=== PATIENT | male | born 1935 | race Caucasian/White ===

== ENCOUNTER 2018-04-27 17:38 | Emergency (ER) | payer OTHER, MEDICARE ==
[~2018-04-27] VITALS: Ht 172.7 cm; Wt 81.6 kg
[~2018-04-27 17:38] MED LIST: ASPI-1154 PO; CLOP75TA32 PO; FURO40TA5 PO; GABA-529 PO; LOSA1TAB43 PO; LOVA20TA2 PO; METF500T6 PO; TAMS-11 PO
--- NOTE | 2018-04-27 17:40 | NUR ---
Pt wheeled to bed 8
[2018-04-27 17:42] VITALS: BP_SYST 157
--- NOTE | 2018-04-27 17:42 | NUR ---
ER Dr. Santiago at bedside examining patient.
--- NOTE | 2018-04-27 17:45 | NUR ---
Pt presents to ER as pt reports having mechanical fall at home early Monday morning. Pt reports that his vision "blacked out" and could not see anything for 30 min, during which he tripped and fell in the hallway of his home. Pt denies KO; pt presents with bump on top of his head, blue / purple discoloration to L side of face, abrasion to L knee, skin tears to R hopson. Pt denies any pain at this time. Pt said he spoke with his PMD earlier today who instructed for him to come to ER. Pt is accompanied by daughter, AOX4, speaking full sentences, no signs of acute distress.
--- NOTE | 2018-04-27 17:55 | NUR ---
Per pt's request, 22G needle to start IV on RAC. Pt stated that 20G needle is too big and would hurt too much.
--- NOTE | 2018-04-27 17:55 | NUR ---
# 22 gauge angiocath placed to RAC. Use of asceptic technique. Opsite placed over site. Blood return noted. Blood for lab drawn from site. Flushed with 10 cc of normal saline. No evidence of infiltration noted. Patient tolerated well.
--- NOTE | 2018-04-27 18:05 | NUR ---
Patient transported to radiology via gurney, accompanied by rad staff.
[2018-04-27 18:25] LABS: BASOPHILS # (AUTO) 0.1 K/uL (0.0-0.2); BASOPHILS % (AUTO) 0.6 % (0.0-2.0); EOSINOPHILS % (AUTO) 0.1 % (0.0-4.0); HEMATOCRIT 43.3 % (36-54); HEMOGLOBIN 13.9 g/dL (14.0-18.0); LYMPHOCYTES # (AUTO) 1.8 K/uL (1.0-5.5); LYMPHOCYTES % (AUTO) 14.3 % (20.5-51.5); MEAN CORPUSCULAR HEMOGLOBIN 28 pg (27-31); MEAN CORPUSCULAR HGB CONC 32 % (32-36); MEAN CORPUSCULAR VOLUME 88 fL (79.0-98.0); MONOCYTES # (AUTO) 1.2 K/uL (0.0-1.0); MONOCYTES % (AUTO) 9.4 % (1.7-9.3); NEUTROPHILS # (AUTO) 9.6 K/uL (1.8-7.7); NEUTROPHILS % (AUTO) 75.6 % (40.0-70.0); PLATELET COUNT (AUTO) 287 K/uL (130-430); RED BLOOD CELL COUNT(AUTO) 4.93 MIL/uL (4.2-6.2); WHITE BLOOD COUNT (AUTO) 12.7 K/uL (4.8-10.8)
[2018-04-27 18:34] LABS: ANION GAP 11 (5-15); CALCIUM 9.4 mg/dL (8.4-11.0); CHLORIDE 101 mmol/L (98-107); CREATININE 2.53 mg/dL (0.55-1.30); GLUCOSE 158 mg/dL (70-99); POTASSIUM 4.2 mmol/L (3.5-5.1); SODIUM SERUM 137 mmol/L (136-145); UREA NITROGEN, BLOOD 43 mg/dL (8-21)
[2018-04-27 18:39] LABS: ALANINE AMINOTRANSFERASE 26 U/L (12-78); ALBUMIN 4.1 g/dL (3.4-4.8); ASPARTATE AMINOTRANSFERASE 39 U/L (10-37); TOTAL BILIRUBIN 0.7 mg/dL (0.0-1.0)
--- NOTE | 2018-04-27 18:50 | NUR ---
Pt upset stating that he needs to leave miguel angel. Pt raising voice and using loud, inappropriate tone with staff. Dr. Santiago informed.
--- NOTE | 2018-04-27 19:00 | NUR ---
Patient does not wish to proceed with medical care recommended by Dr. Santiago. Patient given information related to possible complications, up to and including , which could occur as a result of leaving hospital at this time. Patient verbalizes understanding of risks involved leaving against medical advice. Patient has signed AMA form.
[2018-04-27] MEDS ORDERED: BACITRACIN 1 GM OINT TP ONE (19:03)
== END 2018-04-27 19:00 | disposition left against medical advice (07) ==
LOC: SED 17:38
DX: S90.112A Contusion of left great toe without damage to nail, initial encounter (principal); S00.83XA Contusion of other part of head, initial encounter; S80.811A Abrasion, right lower leg, initial encounter; E11.9 Type 2 diabetes mellitus without complications; I10 Essential (primary) hypertension; F03.90 Unspecified dementia, unspecified severity, without behavioral disturbance, psychotic disturbance, mood disturbance, and anxiety; Z79.899 Other long term (current) drug therapy; W19.XXXA Unspecified fall, initial encounter; Y93.89 Activity, other specified; Y92.89 Other specified places as the place of occurrence of the external cause; Y99.8 Other external cause status
CPT/HCPCS: 36415; 70450-TC; 71045; 80053; 85025; 93005; 99285

== ENCOUNTER 2018-10-20 11:55 | Inpatient (IN) | payer OTHER, MEDICARE ==
[~2018-10-20] VITALS: Ht 172.7 cm; Wt 96.2 kg
[2018-10-20 11:55] VITALS: BP_SYST 124
[~2018-10-20 11:55] MED LIST changes: +METF-379 PO; -METF500T6 PO
--- NOTE | 2018-10-20 11:55 | NUR ---
BROUGHT IN BY [facility], TRIAGED, REPORT GIVEN TO MICKY
--- NOTE | 2018-10-20 11:55 | NUR ---
PLACED IN BED #2
[2018-10-20] MEDS ORDERED: NACL 0.9% 1,000 ML IV ONE ×2 (12:09→15:15)
[2018-10-20] MEDS ORDERED: MORPHINE 4 MG/ML INJ. SYRINGE IVP ONE ×2 (12:15→14:15)
--- NOTE | 2018-10-20 12:25 | NUR ---
PT REFUSED TO HAVE XRAYS DONE. DR ALARCON AWARE.
--- NOTE | 2018-10-20 12:36 | NUR ---
Patient is awake, alert, and oriented x4. Patient is complaining of pain of left hip pain radiating down to his toes x1 day, 03/28.
--- NOTE | 2018-10-20 12:41 | NUR ---
REFUSED TO HAVE LABS DRAWN, DR ALARCON AWARE
[2018-10-20 13:27] LABS: ANION GAP 12 (5-15); CALCIUM 9.4 mg/dL (8.4-11.0); CHLORIDE 97 mmol/L (98-107); CREATININE 2.13 mg/dL (0.55-1.30); GLUCOSE 324 mg/dL (70-99); POTASSIUM 4.4 mmol/L (3.5-5.1); SODIUM SERUM 132 mmol/L (136-145); UREA NITROGEN, BLOOD 39 mg/dL (8-21)
[2018-10-20 13:30] LABS: BASOPHILS # (AUTO) 0.1 K/uL (0.0-0.2); BASOPHILS % (AUTO) 0.9 % (0.0-2.0); EOSINOPHILS % (AUTO) 0.3 % (0.0-4.0); HEMATOCRIT 50.7 % (36-54); HEMOGLOBIN 16.5 g/dL (14.0-18.0); LYMPHOCYTES % (AUTO) 21.1 % (20.5-51.5); MEAN CORPUSCULAR HEMOGLOBIN 29 pg (27-31); MEAN CORPUSCULAR HGB CONC 33 % (32-36); MEAN CORPUSCULAR VOLUME 89 fL (79.0-98.0); MONOCYTES # (AUTO) 0.6 K/uL (0.0-1.0); MONOCYTES % (AUTO) 6.3 % (1.7-9.3); NEUTROPHILS # (AUTO) 6.7 K/uL (1.8-7.7); NEUTROPHILS % (AUTO) 71.4 % (40.0-70.0); PLATELET COUNT (AUTO) 248 K/uL (130-430); RED BLOOD CELL COUNT(AUTO) 5.69 MIL/uL (4.2-6.2); RED CELL DISTRIBUTION WIDTH 15.5 % (9.0-15.0); WHITE BLOOD COUNT (AUTO) 9.4 K/uL (4.8-10.8)
[2018-10-20 13:31] LABS: PROTHROMBIN TIME 10.4 SECS (9.5-12.5)
[2018-10-20 13:32] LABS: ALANINE AMINOTRANSFERASE 24 U/L (12-78); ASPARTATE AMINOTRANSFERASE 14 U/L (10-37); TOTAL BILIRUBIN 0.9 mg/dL (0.0-1.0)
--- NOTE | 2018-10-20 14:12 | NUR ---
Patient is refusing to be repositioned after sitting up to try to urinate, patient and his daughter are demanding more morphine.
--- NOTE | 2018-10-20 14:15 | NUR ---
Patient refused in/out catheter for urine sample.
--- NOTE | 2018-10-20 14:16 | NUR ---
DAUGHTER AT BEDSIDE YELLING AT STAFF, EXPLAINED TO HER THAT PT HAS REFUSED ALL TESTING THAT WAS ORDERED. DR ALARCON AWARE.
--- NOTE | 2018-10-20 14:36 | NUR ---
DAUGHTER WITNESSED VIDEOTAPING STAFF AT PTS BEDSIDE. SECURITY SPEAKING WITH DAUGHTER AT THIS TIME, DENIES ANY VIDEOTAPING. WITNESSED BY STAFF AND
--- NOTE | 2018-10-20 15:04 | NUR ---
Patient is nausea, MD made aware. [place] offered to patient.
[2018-10-20 15:15] LABS: BILIRUBIN,URINE NEGATIVE (NEGATIVE); BLOOD, URINE 2+ (NEGATIVE); CLARITY/URINE SL CLOUDY (CLEAR); COLOR,URINE YELLOW (YELLOW); GLUCOSE,URINE 3+ (NEGATIVE); KETONES,URINE 1+ (NEGATIVE); LEUKOCYTE ESTERASE ,URINE 2+ (NEGATIVE); NITRITE, URINE POSITIVE (NEGATIVE); PH,URINE 5.5 (5.0-8.0); PROTEIN URINE 2+ (NEGATIVE); UROBILINOGEN,URINE 0.2 (0.2-1.0)
[2018-10-20] MEDS ORDERED: ONDANSETRON HCL 4 MG/2 ML VIAL IVP ONE ×2 (15:15)
[2018-10-20 15:22] LABS: BACTERIA,URINE MANY /HPF (None Seen); MUCUS,URINE None Seen /LPF (None Seen); RBC,URINE 0-3 /HPF (0-3); WBC,URINE >100 /HPF (0-3)
--- NOTE | 2018-10-20 15:27 | NUR ---
DR ALARCON AT BEDSIDE SPEAKING WITH PT AND PTS DAUGHTER.
[2018-10-20] MEDS ORDERED: cefTRIAXone 1 GM IVPB PREMIX 50 ML IV ONE (15:30)
[2018-10-20] MEDS ORDERED: TEMA15CA5 PO (15:57)
[2018-10-20] MEDS ORDERED: INSU100V3 SQ (15:57)
[2018-10-20] MEDS ORDERED: LEVO100T9 PO (15:57)
[2018-10-20] MEDS ORDERED: FURO-149 PO (15:57)
[2018-10-20] MEDS ORDERED: LOSA1TAB43 PO (15:57)
[2018-10-20] MEDS ORDERED: LEVO75TA7 PO (15:57)
[2018-10-20] MEDS ORDERED: AMLO2.5T2 PO (15:57)
[2018-10-20] MEDS ORDERED: LEVE500T77 PO (15:57)
[2018-10-20] MEDS ORDERED: ALPR0.25 PO (15:57)
[2018-10-20] MEDS ORDERED: LOVA20TA2 PO (15:57)
--- NOTE | 2018-10-20 16:02 | NUR ---
Patient will be admitted to care of Dr. Daniel Gorman. Admitted to medsurg unit. Will go to room 133B. Belongings list completed. Summary report printed. Report will be given at bedside.
--- NOTE | 2018-10-20 16:13 | NUR ---
Patient refused lactic acid and blood cultures. Dr. Thurston made aware.
[2018-10-20] MEDS ORDERED: D5W 1,000 ML IV PRN ×2 (16:15→17:39)
[2018-10-20] MEDS ORDERED: DEXTROSE 50%-WATER 50 ML DISP.SYRIN IVP PRN (16:15)
[2018-10-20] MEDS ORDERED: GLUCOSE 15 GM GEL (in 37.5 GM TUBE) PO PRN ×2 (16:15→17:45)
--- NOTE | 2018-10-20 16:21 | NUR ---
ADMISSION NOTE Received patient from ER via héctor, received report from MICKY CRANDALL. Patient admitted with diagnosis of UNCONTROLLED DM. Patient oriented to hospital routine, call light, toileting and safety-patient verbalized understanding.
--- NOTE | 2018-10-20 16:27 | NUR ---
Patient transferred to room 133B. Bedside report given to KARLEY Gomez for continuation of care.
[2018-10-20 16:35] VITALS: BP_SYST 161; BP_SYST 89
--- NOTE | 2018-10-20 16:45 | NUR ---
patient alert awake x 2. knows his name know where he at. obese. vitals signs taken temp 96.9 hr 76, resp 16, bp 165/73 and complaining left thigh/left leg. has bruises on his legs. has band aid on left knee.
[2018-10-20 17:05] VITALS: BP_SYST 165
[2018-10-20] MEDS: NACL 0.9% 1,000 ML IV SCH ×2 (17:39→21:58)
[2018-10-20] MEDS ORDERED: ACETAMINOPHEN 325 MG TABLET PO PRN (17:45)
[2018-10-20] MEDS ORDERED: HYDROcodone/ACETAMIN 5-325 MG TAB (NORCO/ VICODIN) PO PRN (17:45)
[2018-10-20] MEDS ORDERED: cloNIDine HCL 0.1 MG TABLET PO PRN (17:45)
[2018-10-20] MEDS ORDERED: TEMAZEPAM 15 MG CAPSULE PO SCH (17:45)
[2018-10-20] MEDS ORDERED: DEXTROSE 50% JECT 50 ML DISP.SYRIN IVP PRN (17:45)
[2018-10-20] MEDS ORDERED: INSULIN REGULAR, HUMAN 100 UNITS/ML, 10 ML VIAL (novoLIN R) SUBCUT PRN (17:45)
[2018-10-20] MEDS ORDERED: ONDANSETRON HCL 4 MG/2 ML VIAL IVP PRN ×2 (17:45)
--- NOTE | 2018-10-20 17:51 | NUR ---
CONSULTATION PAGED REASON FOR CONSULTATION:DIABETES WAS CONSULT CALLED?Y PERSON WHO WAS NOTIFIED:LOGAN CONSULTING PHYSICIAN:LIZET MURPHY INTERPRETER AND TRANSLATOR SPECIALTY:ENDO INTERPRETER AND TRANSLATOR PHONE NUMBER:[phone] REQUESTING PHYSICIAN:PATRICA RODRIGUEZ
--- NOTE | 2018-10-20 17:53 | NUR ---
CONSULTATION PAGED REASON FOR CONSULTATION:HYPERTENSION WAS CONSULT CALLED?Y PERSON WHO WAS NOTIFIED:LOGAN CONSULTING PHYSICIAN:AICHA RODRIGUEZ KINDERGARTEN TUTOR SPECIALTY:CARDIO KINDERGARTEN TUTOR PHONE NUMBER:[phone] REQUESTING PHYSICIAN:PATRICA RODRIGUEZ
--- NOTE | 2018-10-20 17:58 | NUR ---
CONSULTATION PAGED REASON FOR CONSULTATION:RENAL FAILURE WAS CONSULT CALLED?Y PERSON WHO WAS NOTIFIED:QUINCY CONSULTING PHYSICIAN:JOSTIN MENSAH (GINETTE ANDUJAR BAR TURNER) INVOICE CLASSIFICATION CLERK SPECIALTY:NEPHRO INVOICE CLASSIFICATION CLERK PHONE NUMBER:[phone] REQUESTING PHYSICIAN:PATRICA RODRIGUEZ
[2018-10-20] MEDS ORDERED: cefTRIAXone 1 GM IVPB PREMIX 50 ML IV SCH (18:00)
[2018-10-20] MEDS: ATORVASTATIN 10 MG TABLET PO SCH (18:00)
--- NOTE | 2018-10-20 18:02 | NUR ---
CONSULTATION PAGED REASON FOR CONSULTATION:UTI WAS CONSULT CALLED?Y PERSON WHO WAS NOTIFIED:QUINCY CONSULTING PHYSICIAN:TIFFANIE WRIGHT AUTOMOBILE ASSEMBLER SPECIALTY:ID AUTOMOBILE ASSEMBLER PHONE NUMBER:[phone] REQUESTING PHYSICIAN:PATRICA RODRIGUEZ FAXED FACE SHEET TO [phone]
[2018-10-20] MEDS: INSULIN REGULAR, HUMAN 100 UNITS/ML, 10 ML VIAL (novoLIN R) SUBCUT PRN ×2 (18:24→20:22)
--- NOTE | 2018-10-20 18:40 | NUR ---
latest bs 295 mg/dl. coverage given. clonidine 0.1 mg tablet given for bp 170/70. voiding at the urinal by sitting on the middle of the bed.
--- NOTE | 2018-10-20 19:30 | NUR ---
INITIAL NOTES RECEIVED HANDOFF REPORT FROM OFFGOING NURSE AT THE BEDSIDE. PATIENT IS RESTING COMFORTABLY IN BED, LAYING ON HIS RIGHT SIDE, EYES CLOSED. NO SOB, NO ACUTE DISTRESS, NO SIGNS OF PAIN OR FACIAL GRIMACING NOTED. BREATHING EVEN AND UNLABORED WITH VISIBLE CHEST RISE AND FALL NOTED. BED IS LOCKED, IN THE LOWEST POSITION, 2X SIDE RAILS UP, BED ALARM IS ON. CALL LIGHT IS WITHIN REACH. WILL CONTINUE WITH PLAN OF CARE.
[2018-10-20 20:00] VITALS: BP_SYST 146
[2018-10-20] MEDS: levETIRAcetam 500 MG TABLET PO SCH (20:24)
--- NOTE | 2018-10-20 21:06 | NUR ---
PATIENT AMBULATED TO THE RESTROOM AND BACK TO BED INDEPENDENTLY WITH STEADY GAIT. HOWEVER, PATIENT ALSO PEED ON THE BEDSIDE TABLE. EDUCATED PATIENT TO USE THE URINAL FOR PEEING OR THE TOILET. PATIENT VERBALIZED UNDERSTANDING. PATIENT ALSO HAD AN EPISODE OF VOMITING, CLEAR LIQUID 100ML. ELEVATED HOB AND PROVIDED PATIENT WITH EMESIS BASIN. PATIENT NOW RESTING COMFORTABLY IN BED. NO SOB, NO ACUTE DISTRESS, NO COMPLAINTS OF PAIN AT THIS TIME. BED IS LOCKED, IN THE LOWEST POSITION, 2X SIDE RAILS UP, BED ALARM IS ON. CALL LIGHT IS WITHIN REACH. EDUCATED PATIENT TO CALL FOR ASSISTANCE.
[2018-10-20] MEDS ORDERED: levETIRAcetam 500 MG TABLET PO ONE (21:15)
--- NOTE | 2018-10-20 21:15 | NUR ---
INFORMED DR BARBOSA THAT PATIENT HAD AN EPISODE OF VOMITTING AFTER TAKING KEPPRA MEDICATION. DR BARBOSA ORDERED FOR ONE TIME DOSE OF KEPPRA TO BE GIVEN TO THE PATIENT, SEE EMAR. ALSO PATIENT REQUESTED FOR SLEEPING PILL, AND DR BARBOSA ORDERED TRAZADONE 100MG Q6HR PRN FOR INSOMNIA.
[2018-10-20] MEDS: traZODone HCL 50 MG TABLET (DESYREL) PO PRN (21:26)
--- NOTE | 2018-10-20 21:30 | NUR ---
PATIENT AGITATED, STATED THAT SERVICE IS SLOW AT THIS [facility]. REORIENTED PATIENT TO THE HOSPITAL SETTINGS, PATIENT VERBALIZES UNDERSTANDING. WILL CONTINUE TO MONITOR CLOSELY.
--- NOTE | 2018-10-20 23:13 | NUR ---
INFORMED LABORATORY TO ATTEMPT TO DRAW BLOOD CULTURES AGAIN. PATIENT IS MORE COOPERATIVE AT THIS TIME. LAB STATED THAT WILL COME WHEN THEY ARE AVAILABLE.
--- NOTE | 2018-10-20 23:41 | NUR ---
BLOOD CULTURES DRAWN. WILL PROCEED TO GIVE DOSE ROCEPHIN ORDERED BY . Addendum: 10/20/18 at 2343 by Dilia Hurst RN CHARGE NURSE AWARE
--- NOTE | 2018-10-21 | NUR ---
pt.assessed.v/s assessed.values w/in normal limits.pt.presents quiescent affect;calm.pt.assessed for cleanliness.pt.repositioned. i have assessed the iv access;intact;patent.iv fluids infusing.no requests posited @this hour.general status stable.respiratory status stable.call light/telephone placed w/in the reach of the pt.
[2018-10-21 00:15] VITALS: BP_SYST 120
[2018-10-21] MEDS: cefTRIAXone 1 GM IVPB PREMIX 50 ML IV SCH ×2 (00:37→09:40)
--- NOTE | 2018-10-21 00:48 | NUR ---
Patient resting comfortably in bed, breathing even and unlabored, eyes closed. No SOB, no acute distress, no signs of pain or facial grimacing noted. Bed is locked, in the lowest position, 2x side rails up, bed alarm is on. Call light is within reach.
--- NOTE | 2018-10-21 02:12 | NUR ---
Dr Robles at the bedside to speak with the patient. Patient yelled at Dr Robles. Provided reassurance to the patient and calmed the patient down. Patient is now resting comfortably in bed.
--- NOTE | 2018-10-21 02:15 | NUR ---
Patient yelled at spinning frame tender for 2nd lactic acid. Refuses blood draw at this time. Explained risks and benefits. Patient still refused. Charge nurse made aware.
--- NOTE | 2018-10-21 03:10 | NUR ---
patient resting comfortably in bed. eyes closed. breathing even and unlabored with visible chest rise and fall noted. no sob, no acute distress, no signs of pain or facial grimacing noted. Bed is locked, lowest position, 3x side rails up, bed alarm is on. Call light within reach.
--- NOTE | 2018-10-21 03:59 | NUR ---
CONSULT CALLED Reason for Consultation: Renal Failure Person who was notified: Bessy-jony Consulting Physician: Adam Maloney; however, Dr Lovell is plant protection superintendent [phone] Consult Speciality: Photo Tech Ordering Physician: Louie Tam
--- NOTE | 2018-10-21 05:00 | NUR ---
Assisted patient to sit at the edge of the bed to use the urinal. Patient able to void. Now resting comfortably in bed. Call light within reach. Encouraged patient to call for assistance.
[2018-10-21] MEDS: INSULIN REGULAR, HUMAN 100 UNITS/ML, 10 ML VIAL (novoLIN R) SUBCUT PRN ×4 (06:04→22:27)
--- NOTE | 2018-10-21 06:31 | NUR ---
Closing notes Patient is resting comfortably in bed, awake and alert. IV fluids infusing at the ordered rate, see eMAR for details. Bed is locked, in the lowest position, 2x side rails up, bed alarm is on. Call light is within reach. Fall and safety precautions maintained. All needs have been met during this shift. Will endorse care to oncoming dayshift nurse.
[2018-10-21 06:49] LABS: BASOPHILS % (AUTO) 0.4 % (0.0-2.0); HEMATOCRIT 44.5 % (36-54); HEMOGLOBIN 14.7 g/dL (14.0-18.0); LYMPHOCYTES # (AUTO) 1.5 K/uL (1.0-5.5); MEAN CORPUSCULAR HEMOGLOBIN 29 pg (27-31); MEAN CORPUSCULAR HGB CONC 33 % (32-36); MEAN CORPUSCULAR VOLUME 89 fL (79.0-98.0); MONOCYTES # (AUTO) 0.7 K/uL (0.0-1.0); MONOCYTES % (AUTO) 6.5 % (1.7-9.3); NEUTROPHILS # (AUTO) 8.6 K/uL (1.8-7.7); NEUTROPHILS % (AUTO) 79.1 % (40.0-70.0); PLATELET COUNT (AUTO) 231 K/uL (130-430); WHITE BLOOD COUNT (AUTO) 10.9 K/uL (4.8-10.8)
--- NOTE | 2018-10-21 07:35 | NUR ---
Opening Note: Patient laying in bed resting. Patient denies pain and discomfort. Breathing is even and unlabored with no distress noted. IV patent and intact running NS @ 100 ml/hr per MD orders, no signs of infiltration noted. Safety precautions in place; bed in lowest position, wheels locked, side rails x3, bed alarm activated and call light within reach. No needs at this time. Will continue to monitor.
[2018-10-21 07:53] LABS: ANION GAP 10 (5-15); C-REACTIVE PROTEIN QUANT 1.3 mg/dL (0-0.5); CALCIUM 8.6 mg/dL (8.4-11.0); CHLORIDE 104 mmol/L (98-107); CREATININE 1.69 mg/dL (0.55-1.30); GLUCOSE 170 mg/dL (70-99); PHOSPHORUS 3.9 mg/dL (2.7-4.5); POTASSIUM 4.5 mmol/L (3.5-5.1); SODIUM SERUM 136 mmol/L (136-145); UREA NITROGEN, BLOOD 37 mg/dL (8-21)
[2018-10-21 08:59] LABS: ERYTHROCYTE SEDIMENTATION RATE 8 MM/HR (0-15)
[2018-10-21] MEDS ORDERED: NON-FORMULARY MEDICATION (Losartan/Hctz* (Losartan-Hctz 100-12.5 Mg Tab*) 1 EACH) PO SCH (09:00)
[2018-10-21 09:37] VITALS: BP_SYST 132
[2018-10-21] MEDS: LOSARTAN POTASSIUM 50 MG TABLET (COZAAR) PO SCH (09:40)
[2018-10-21] MEDS: ASPIRIN 81 MG TABLET(ECOTRIN) PO SCH (09:40)
[2018-10-21] MEDS: HYDROCHLOROTHIAZIDE 12.5 MG CAPSULE (HCTZ) PO SCH (09:41)
[2018-10-21] MEDS: LEVOTHYROXINE SODIUM 0.1 MG TABLET PO SCH (09:41)
[2018-10-21] MEDS: amLODIPine BESYLATE 5 MG TABLET PO SCH (09:41)
[2018-10-21] MEDS: levETIRAcetam 500 MG TABLET PO SCH ×2 (09:42→22:00)
[2018-10-21] MEDS: FUROSEMIDE 40 MG TABLET PO SCH (09:42)
[2018-10-21] MEDS: ALPRAZolam 0.25 MG TABLET PO SCH (09:42)
--- NOTE | 2018-10-21 10:05 | NUR ---
Rounds: Patient in bed resting, no distress noted. Will continue to monitor.
[2018-10-21] MEDS ORDERED: INSULIN GLARGINE 100 UNITS/ML 10 ML VIAL SUBCUT ONE (10:08)
--- NOTE | 2018-10-21 11:30 | NUR ---
Wound Care: Wound care done to left knee. Patient tolerated well. See assessment.
--- NOTE | 2018-10-21 11:31 | NUR ---
Accucheck: Blood sugar 222, covered with 4 units Novolin R per sliding scale, see eMAR.
--- NOTE | 2018-10-21 11:53 | NUR ---
Nutrition Update Michael Scale 18 noted. Pt admitted for uncontrolled DM. Diet: cardiac, CCHO BMI: 24.6 kg/m2 RD to follow per nutrition care standards.
[2018-10-21 12:26] VITALS: BP_SYST 125
[2018-10-21] MEDS: NACL 0.9% 1,000 ML IV SCH ×2 (13:20→23:39)
--- NOTE | 2018-10-21 13:32 | NUR ---
IV RE-INSERTION: IV accidentally removed by patient. Restarted on right forearm . Successful after 1 attempts. Resumed current IVF of 0.9% Sodium Chloride and regulated @100 ml per hour. Will observe for any signs of infiltration.
--- NOTE | 2018-10-21 16:15 | NUR ---
Rounds: Patient in bed resting. Patient denies pain and discomfort. Breathing is even and unlabored. IVF infusing with no signs of infiltration. Safety precautions in place and call light within reach. Will continue to monitor.
[2018-10-21 17:12] VITALS: BP_SYST 134
[2018-10-21] MEDS: ATORVASTATIN 10 MG TABLET PO SCH (17:17)
--- NOTE | 2018-10-21 17:17 | NUR ---
Accucheck: Blood sugar 291, covered with 6 units of Novolin R per sliding scale. See eMAR.
[2018-10-21] MEDS: HYDROcodone/ACETAMIN 10-325 MG TAB PO PRN (18:21)
--- NOTE | 2018-10-21 18:46 | NUR ---
Closing Note: Patient laying in bed resting. Patient denies pain and discomfort. Breathing is even and unlabored with no distress noted. IV patent and intact running NS @ 100 ml/hr per MD orders, no signs of infiltration noted. Safety precautions in place; bed in lowest position, wheels locked, side rails x3, bed alarm activated and call light within reach. All needs met. Will endorse plan of care to NOC, nurse.
[2018-10-21 19:00] VITALS: BP_SYST 130
--- NOTE | 2018-10-21 19:00 | NUR ---
change of shift.pt.presents quiescent affect;calm.loc;confused.pt.is repositioned.iv fluids infusing. general status stable.respiratory status stable.call light/telephone w/in the reach of the pt.
[2018-10-21 20:00] VITALS: BP_SYST 130
--- NOTE | 2018-10-21 20:00 | NUR ---
pt.assessed.v/s assessed;values w/in normal limits.no c/o pain,nausea.i have apprised the pt.that snacks/beverages are available w/in the shift.pt.has requests snacks.i have provided a sandwich/apple juice.pt.assessed for cleanliness.pt.repositioned.iv access assessed;intact;patent iv fluids infusing.general status stable.respiratory status stable:02-sat%=96%@room air.
--- NOTE | 2018-10-21 20:30 | NUR ---
i have assessed the blood glucose:value;220mg/dl.no additional requests posited @this hour.
--- NOTE | 2018-10-21 21:00 | NUR ---
2100peidcation administered,.i have administered insulin;regular;4-units per sliding scale parameters. pt.had requests additional snacks.i have provided additional sandwich.
--- NOTE | 2018-10-21 21:31 | NUR ---
CONSULT REASON FOR CONSULT: SCIATICA PERSON I SPOKE WITH: SOFÍA CONSULTING PHYSICIAN: DR. ROCK VIDEO NEWS EDITOR PHONE NUMBER: [phone] ORDERING PHYSICIAN: PATRICA JIANG
--- NOTE | 2018-10-21 22:00 | NUR ---
pt.assessed.pt.presents quiescent affect;calm.viewing tv programming.pt.assessed for cleanliness.pt.repositioned. i have assessed the iv acces;intact;patent of iv fluids infusing.general status stable.respiratory status stable.call light/telephone placed w/in the reach of the pt.
[2018-10-21] MEDS: traZODone HCL 50 MG TABLET (DESYREL) PO PRN (22:01)
--- NOTE | 2018-10-22 | NUR ---
pt.assessed.v/s assessed;values w/in normal limits.no c/o pain,nausea.pt.repositioned.i have assessed the iv access;intact patent.iv fluids infusing.general status stable.respiratory status stable;o2-sat%=96%@room air.no additional request posited @this hour.call light/telephone placed w/in the reach of the pt.
[2018-10-22] MEDS: HYDROcodone/ACETAMIN 10-325 MG TAB PO PRN ×2 (01:02→11:38)
[2018-10-22 01:11] VITALS: BP_SYST 113
[2018-10-22] MEDS: TEMAZEPAM 15 MG CAPSULE PO PRN ×2 (01:13→22:15)
--- NOTE | 2018-10-22 01:15 | NUR ---
pt.had requested a snack.i proved a sandwich/apple juice.pt.had requested medication;sleep.i have administered restoril;15mg po. no additional requests posited a@this hour. Addendum: 10/22/18 at 0229 by Gilberto Jackson RN pt.had requested medication;pain.i have administered norco;10./325mg po.to f/u r;pain medication efficacy per pain mgx protocol.
--- NOTE | 2018-10-22 02:00 | NUR ---
pt.assessed.pt.presents quiescent affect;calm,somnolent.pt.repositioned.i have assessed the iv access;intact;patent;iv fluids infusing. pt.assessed for cleanliness.general status stable.respiratory status stable.call light./telephone placed w/in the reach of the pt.
--- NOTE | 2018-10-22 04:00 | NUR ---
pt.assessed.pt.presents quiescent affect;calm,somnolent.pt assessed for cleanliness.pt.repositioned.i have assessed the iv access;intact;patent. iv fluids infusing.general status stable.respiratory status stable.call light/telephone placed w/in the reach of the pt.
[2018-10-22] MEDS: INSULIN REGULAR, HUMAN 100 UNITS/ML, 10 ML VIAL (novoLIN R) SUBCUT PRN ×2 (06:06→11:16)
--- NOTE | 2018-10-22 06:35 | NUR ---
pt.assessed.pt.presents quiescent affect;calm.pt.viewing tv programming.i have attended to the wound care:lt.leg;hopson. i have assessed the blood glucose;value;151mg/dl;.i have administered 2 units;regular insulin per sliding scale parameters. pt.assessed for cleanliness.pt.repositioned.general status stable.respiratory status stable.call light/telephone placed w/in the reach of the pt.
[2018-10-22 06:43] LABS: BASOPHILS # (AUTO) 0.1 K/uL (0.0-0.2); BASOPHILS % (AUTO) 0.7 % (0.0-2.0); EOSINOPHILS # (AUTO) 0.1 K/uL (0.0-0.4); HEMATOCRIT 43.1 % (36-54); HEMOGLOBIN 14.2 g/dL (14.0-18.0); LYMPHOCYTES # (AUTO) 2.4 K/uL (1.0-5.5); LYMPHOCYTES % (AUTO) 28.2 % (20.5-51.5); MEAN CORPUSCULAR HEMOGLOBIN 29 pg (27-31); MEAN CORPUSCULAR HGB CONC 33 % (32-36); MEAN CORPUSCULAR VOLUME 88 fL (79.0-98.0); MONOCYTES # (AUTO) 0.7 K/uL (0.0-1.0); MONOCYTES % (AUTO) 7.8 % (1.7-9.3); NEUTROPHILS # (AUTO) 5.4 K/uL (1.8-7.7); NEUTROPHILS % (AUTO) 62.3 % (40.0-70.0); PLATELET COUNT (AUTO) 208 K/uL (130-430); RED BLOOD CELL COUNT(AUTO) 4.88 MIL/uL (4.2-6.2); RED CELL DISTRIBUTION WIDTH 15.8 % (9.0-15.0); WHITE BLOOD COUNT (AUTO) 8.6 K/uL (4.8-10.8)
[2018-10-22 07:13] LABS: ALANINE AMINOTRANSFERASE 20 U/L (12-78); ALBUMIN 3.1 g/dL (3.4-4.8); ANION GAP 5 (5-15); ASPARTATE AMINOTRANSFERASE 12 U/L (10-37); C-REACTIVE PROTEIN QUANT 1.4 mg/dL (0-0.5); CALCIUM 8.6 mg/dL (8.4-11.0); CHLORIDE 106 mmol/L (98-107); CREATININE 1.88 mg/dL (0.55-1.30); FREE T4 (FREE THYROXINE) 0.8 ng/dL (0.6-1.6); GLUCOSE 172 mg/dL (70-99); PHOSPHORUS 4.4 mg/dL (2.7-4.5); POTASSIUM 3.8 mmol/L (3.5-5.1); SODIUM SERUM 135 mmol/L (136-145); THYROID STIMULATING HORMONE 5.74 uIu/mL (0.34-4.82); TOTAL BILIRUBIN 0.5 mg/dL (0.0-1.0); UREA NITROGEN, BLOOD 33 mg/dL (8-21)
--- NOTE | 2018-10-22 07:31 | NUR ---
Opening Note received bedside SBAR report from assessment counselor RN, patient resting in bed, no acute distress noted, room close to nurses station, patient educated on use of call light and asked to call for assistance, patient verbalized understanding, call light in reach, bed alarm on, bed in low and locked position.
[2018-10-22 07:50] LABS: ERYTHROCYTE SEDIMENTATION RATE 5 MM/HR (0-15)
[2018-10-22 08:00] VITALS: BP_SYST 114
[2018-10-22] MEDS ORDERED: INSULIN GLARGINE 100 UNITS/ML 10 ML VIAL SUBCUT SCH (09:00)
[2018-10-22] MEDS: LOSARTAN POTASSIUM 50 MG TABLET (COZAAR) PO SCH (09:20)
[2018-10-22] MEDS: ASPIRIN 81 MG TABLET(ECOTRIN) PO SCH (09:20)
[2018-10-22] MEDS: levETIRAcetam 500 MG TABLET PO SCH ×2 (09:20→20:21)
[2018-10-22] MEDS: FUROSEMIDE 40 MG TABLET PO SCH (09:21)
[2018-10-22] MEDS: LEVOTHYROXINE SODIUM 0.1 MG TABLET PO SCH (09:21)
[2018-10-22] MEDS: HYDROCHLOROTHIAZIDE 12.5 MG CAPSULE (HCTZ) PO SCH (09:21)
[2018-10-22] MEDS: ALPRAZolam 0.25 MG TABLET PO SCH (09:21)
[2018-10-22] MEDS: amLODIPine BESYLATE 5 MG TABLET PO SCH (09:22)
[2018-10-22] MEDS: NACL 0.9% 1,000 ML IV SCH ×2 (09:31→20:21)
[2018-10-22] MEDS: cefTRIAXone 1 GM IVPB PREMIX 50 ML IV SCH (09:31)
--- NOTE | 2018-10-22 09:43 | NUR ---
RN Rounds patient resting in bed, no acute distress noted, patient assisted to reposition, tolerated well.
--- NOTE | 2018-10-22 11:25 | NUR ---
RN Rounds patient resting in bed, no acute distress noted, patient assisted to reposition, no additional needs at this time.
--- NOTE | 2018-10-22 11:30 | NUR ---
DC Planning: Met with pt and his dtr/Ester at bedside to discuss dcp to snf. Dtr wants MRI to be done with result first. Informed her, MRI plans for 130 to 2 pm today. -- CM f/u.
[2018-10-22 12:29] VITALS: BP_SYST 151
--- NOTE | 2018-10-22 12:32 | NUR ---
Paged Physician paged Dr. Gorman, patient complaint of pain, patient reports PRN norco is not controlling pain, patient and patients daughter educated on use and side effects of PRN norco, patient and patients daughter verbalized understanding, awaiting call back from physician.
--- NOTE | 2018-10-22 12:43 | NUR ---
Physician Rounds Dr. Daniel Gorman at bedside examining patient, informed MD that PRN norco is not controlling patients pain.
--- NOTE | 2018-10-22 13:06 | NUR ---
PHYSICAL THERAPY ORDER HAS BEEN RECEIVED AND THE CHART REVIEWED. PATIENT REPORTS SEVERE LUMBAR SPINE AND LLE PAIN. THAT PREVENTS HIM FROM WALKING. HE IS SCHEDULED FOR AN MRI OF THE LUMBAR SPINE THIS AFTERNOON. WILL ATTEMPT EVALUATION TOMORROW MORNING. PATIENT, HIS DAUGHTER LEANDRO, AND RN ARE IN AGREEMENT. PATIENT WAS ASSISTED, MAX ASSIST, TO SIT AT THE SIDE OF THE BED INORDER TO USE THE URINAL.
--- NOTE | 2018-10-22 13:36 | NUR ---
Dietitian Recommendations *Recommend adding Austin BID to current diet. Provides additional 160 kcal and 5 gm protein daily. Please see Nutritional Assessment for details. DAGOBERTO WILCOX
[2018-10-22] MEDS: MORPHINE 4 MG/ML INJ. SYRINGE IVP PRN (13:37)
--- NOTE | 2018-10-22 13:37 | NUR ---
Dietitian Notes Per attendance clerk's report, daughter brought in hamburger from [employer]. clerk stenographer also reported that daughter got very upset, almost combative and stated that kitchen starved her dad. Pt was referred by [facility] who received report that pt does not eat chicken. Daughter stated that "she" told every staff that pt does not eat chicken. But [facility] never received that report until RD saw pt today. RD have seen pt earlier and pt verbalized his dislike to hospital food, provided food preferences. Pt stated that he has been served w/ chicken every meal since admission. RD asked if he filled out the menu, he said he does not. RD encouraged pt to fill out the menu. Upon RD investigation w/ what kitchen served pt these past 2 days, 10/20/18 Dinner: [place] steak, 10/21/18 Lunch: Roast beef. Pt also asked for asparagus for vegetables, RD informed pt that it is not available and pt got upset and raised voice to RD. RD notified kitchen of pt's food preferences and has updated [employer].
--- NOTE | 2018-10-22 13:48 | NUR ---
Pain Management/Medication patient and patients daughter Ester educated on use and side effects of PRN morphine, patient and patients daughter verbalized understanding, patient tolerated medication administration well, no acute distress noted, patient provided with clean linen and assisted to reposition.
--- NOTE | 2018-10-22 14:16 | NUR ---
mri mri cancelled due to presence of neuro stimulator
[2018-10-22] MEDS ORDERED: DEXTROSE 50% JECT 50 ML DISP.SYRIN IVP PRN (15:30)
--- NOTE | 2018-10-22 16:10 | NUR ---
RN Rounds patient assisted to use urinal, 600ml out, patient assisted to reposition in bed, patient resting in bed, no acute distress noted, no additional needs at this time.
[2018-10-22 16:32] VITALS: BP_SYST 147
[2018-10-22] MEDS: ATORVASTATIN 10 MG TABLET PO SCH (17:36)
[2018-10-22] MEDS: INSULIN LISPRO SLIDING SCALE 100 UNITS/ML VIAL (humaLOG) SUBCUT PRN ×2 (17:38→20:23)
[2018-10-22] MEDS: INSULIN Lispro 100 UNITS/ML VIAL (humaLOG) SUBCUT SCH (17:38)
[2018-10-22] MEDS: OXYCODONE/ACETAMINOPHEN *10*mg/325 mg TABLET PO PRN (17:47)
--- NOTE | 2018-10-22 17:52 | NUR ---
Pain Management/Medication patient complaint of pain, patient educated on use and side effects of PRN pain medication, patient verbalized understanding, tolerated medication administration well, no acute distress noted, patient assisted to use urinal, 200ml urine output, patient in bed eating dinner.
--- NOTE | 2018-10-22 19:02 | NUR ---
Closing Note bedside SBAR report given to receiving RN, patient resting in bed, no acute distress noted, patient educated on use of call light and asked to call for assistance, patient verbalized understanding, call light in reach, bed in low and locked position, bed alarm on, side rails padded, care endorsed.
--- NOTE | 2018-10-22 19:15 | NUR ---
OPENING NOTE RECEIVED CARE OF PT, PT RESTING IN BED, BREATHING IS UNLABORED TO ROOM AIR, IVF INFUSING AT ORDERED RATE WITH NO INFILTRATION AT IV SITE. PT DENIES PAIN AT THIS TIME. PT ORIENTED TO USE OF CALL LIGHT AND ENCOURAGED TO CALL FOR ASSISTANCE. SAFETY PRECAUTIONS IN PLACE: BED LOCKED IN LOWEST POSITION, CALL LIGHT WITH PT, SIDE RAILS UP X3, CLOSE TO NURSES STATION, BED ALARM ON. WILL CONTINUE TO MONITOR.
[2018-10-22 20:00] VITALS: BP_SYST 116
--- NOTE | 2018-10-22 20:20 | NUR ---
ACCUCHECK BLOOD SUGAR OF 228, 4 UNITS OF HUMALOG GIVEN PER SLIDING SCALE. SAFETY MAINTAINED, SEIZURE PRECAUTIONS IN PLACE. WILL MONITOR.
--- NOTE | 2018-10-22 22:15 | NUR ---
RESTORIL PT REQUESTING A SLEEP AID. RESTORIL 15 MG PO ADMINISTERED. MEDICATION ACTION AND POTENTIAL SIDE EFFECTS EXPLAINED TO PT. PT VERBALIZED UNDERSTANDING. SAFETY AND SEIZURE PRECAUTIONS MAINTAINED. WILL MONITOR.
[2018-10-23] VITALS: BP_SYST 129
--- NOTE | 2018-10-23 00:15 | NUR ---
RN ROUNDS: PT RESTING IN BED WITH EYES CLOSED. VISIBLE SYMMETRICAL RISE AND FALL OF CHEST TO ROOM AIR. BREATHING IS UNLABORED. NO S/S OF ACUTE DISTRESS. PT APPEARS COMFORTABLE. IVF INFUSING AT ORDERED RATE, NO INFILTRATION AT IV SITE. SAFETY AND SEIZURE PRECAUTIONS MAINTAINED. WILL MONITOR.
--- NOTE | 2018-10-23 02:05 | NUR ---
URINAL ASSISTED PT TO USE URINAL. REPOSITIONED PT BACK IN BED. BREATHING IS UNLABORED. PT DENIES PAIN OR DISCOMFORT. IVF INFUSING ORDERED. PT ENCOURAGED TO CALL FOR FURTHER ASSISTANCE. SAFETY MAINTAINED. WILL MONITOR.
--- NOTE | 2018-10-23 04:15 | NUR ---
URINAL/REPOSITIONED PT ASSISTED TO USE URINAL. PT CLEANED AND REPOSITIONED IN BED. PT DENIES ANY PAIN OR DISCOMFORT AT THIS TIME. BREATHING IS UNLABORED TO ROOM AIR. NO S/S OF ACUTE DISTRESS. SAFETY AND SEIZURE PRECAUTIONS IN PLACE. WILL MONITOR.
--- NOTE | 2018-10-23 05:59 | NUR ---
ACCUCHECK BLOOD SUGAR OF 131, NO INSULIN COVERAGE PER SLIDING SCALE.
[2018-10-23] MEDS: NACL 0.9% 1,000 ML IV SCH ×3 (06:01→18:25)
[2018-10-23] MEDS: INSULIN Lispro 100 UNITS/ML VIAL (humaLOG) SUBCUT SCH ×3 (06:04→16:59)
[2018-10-23] MEDS: LEVOTHYROXINE SODIUM 0.125 MG TABLET PO SCH (06:04)
--- NOTE | 2018-10-23 06:40 | NUR ---
CLOSING NOTE PT RESTING IN BED, PT DENIES PAIN OR DISCOMFORT AT THIS TIME, NO S/S OF ACUTE DISTRESS, BREATHING IS UNLABORED TO ROOM AIR. PT WAS CLEANED, REPOSITIONED, AND PROVIDED NEW LINEN AND A NEW GOWN. IVF INFUSING AT ORDERED RATE WITH NO SIGN OF INFILTRATION AT IV SITE. SAFETY AND SEIZURE PRECAUTIONS MAINTAINED. ALL NEEDS MET DURING SHIFT. WILL CONTINUE TO MONITOR AND PROVIDE CARE UNTIL PT CARE IS ENDORSED TO DAY SHIFT RN.
[2018-10-23 07:00] LABS: BASOPHILS # (AUTO) 0.1 K/uL (0.0-0.2); BASOPHILS % (AUTO) 0.8 % (0.0-2.0); EOSINOPHILS # (AUTO) 0.2 K/uL (0.0-0.4); EOSINOPHILS % (AUTO) 2.3 % (0.0-4.0); HEMATOCRIT 42.9 % (36-54); HEMOGLOBIN 14.1 g/dL (14.0-18.0); LYMPHOCYTES # (AUTO) 2.2 K/uL (1.0-5.5); LYMPHOCYTES % (AUTO) 24.9 % (20.5-51.5); MEAN CORPUSCULAR HEMOGLOBIN 29 pg (27-31); MEAN CORPUSCULAR HGB CONC 33 % (32-36); MEAN CORPUSCULAR VOLUME 89 fL (79.0-98.0); MONOCYTES # (AUTO) 0.7 K/uL (0.0-1.0); MONOCYTES % (AUTO) 7.6 % (1.7-9.3); NEUTROPHILS # (AUTO) 5.6 K/uL (1.8-7.7); NEUTROPHILS % (AUTO) 64.4 % (40.0-70.0); PLATELET COUNT (AUTO) 210 K/uL (130-430); RED BLOOD CELL COUNT(AUTO) 4.84 MIL/uL (4.2-6.2); WHITE BLOOD COUNT (AUTO) 8.8 K/uL (4.8-10.8)
[2018-10-23 07:40] LABS: ALANINE AMINOTRANSFERASE 19 U/L (12-78); ALBUMIN 3.2 g/dL (3.4-4.8); ANION GAP 5 (5-15); C-REACTIVE PROTEIN QUANT 1.3 mg/dL (0-0.5); CALCIUM 8.4 mg/dL (8.4-11.0); CHLORIDE 102 mmol/L (98-107); CREATININE 1.73 mg/dL (0.55-1.30); GLUCOSE 136 mg/dL (70-99); PHOSPHORUS 3.4 mg/dL (2.7-4.5); POTASSIUM 3.7 mmol/L (3.5-5.1); SODIUM SERUM 132 mmol/L (136-145); UREA NITROGEN, BLOOD 28 mg/dL (8-21)
--- NOTE | 2018-10-23 07:45 | NUR ---
OPENING NOTE: RECEIVED REPORT FROM NIGHT NURSE. PATIENT IS RESTING COMFORTABLY IN BED. NO S/S OF DISTRESS OR SOB. PATIENT IS AWAKE AND ALERT. IV IS PATENT AND INFUSING. PATIENT ON ROOM AIR. PATIENT COMPLAINING OF PAIN. CALL LIGHT IN REACH, BED IN LOWEST POSITION, AND WILL CONTINUE TO MONITOR.
[2018-10-23 07:57] LABS: ASPARTATE AMINOTRANSFERASE 13 U/L (10-37); TOTAL BILIRUBIN 0.5 mg/dL (0.0-1.0)
[2018-10-23] MEDS: OXYCODONE/ACETAMINOPHEN *10*mg/325 mg TABLET PO PRN ×2 (08:04→16:18)
[2018-10-23 08:07] VITALS: BP_SYST 115
[2018-10-23] MEDS: cefTRIAXone 1 GM IVPB PREMIX 50 ML IV SCH (08:45)
[2018-10-23] MEDS ORDERED: INSULIN GLARGINE 100 UNITS/ML 10 ML VIAL SUBCUT SCH (09:00)
[2018-10-23 09:48] LABS: ERYTHROCYTE SEDIMENTATION RATE 5 MM/HR (0-15)
[2018-10-23] MEDS: ASPIRIN 81 MG TABLET(ECOTRIN) PO SCH (09:48)
[2018-10-23] MEDS: HYDROCHLOROTHIAZIDE 12.5 MG CAPSULE (HCTZ) PO SCH (09:49)
[2018-10-23] MEDS: LOSARTAN POTASSIUM 50 MG TABLET (COZAAR) PO SCH (09:50)
[2018-10-23] MEDS: ALPRAZolam 0.25 MG TABLET PO SCH (09:50)
[2018-10-23] MEDS: levETIRAcetam 500 MG TABLET PO SCH ×2 (09:50→20:03)
[2018-10-23] MEDS: amLODIPine BESYLATE 5 MG TABLET PO SCH (09:51)
[2018-10-23] MEDS: FUROSEMIDE 40 MG TABLET PO SCH (09:51)
[2018-10-23 11:27] VITALS: BP_SYST 143
--- NOTE | 2018-10-23 12:00 | NUR ---
RN ROUNDS PATIENT IS RESTING COMFORTABLY IN BED. NO S/S OF DISTRESS OR SOB. PATIENT IS AWAKE AND ALERT. FAMILY IS AT BEDSIDE. CALL LIGHT IN REACH, BED IN LOWEST POSITION, AND WILL CONTINUE TO MONITOR.
--- NOTE | 2018-10-23 12:03 | NUR ---
DC Planning: Per KARLEY Lawson, MRI was not performed yesterday this due to questioning that the pt has stimulator implant per CT report. CM s/w dr. Gorman: planning to treat UTI, pain management (left hip sciatic pain radiating to left leg) pending dr. Gonzales consultation. >> D/W Ester dtr and POA about the plan per dr. Gorman. Per Ester she is the second POA, brother Zeferino ( lives in [place]) is the first POA. The copy of POA received from Ester and put on the pt's chart. Addendum: 10/23/18 at 1552 by Shruthi Bates RN Late entry: Discussed dcp via phone with son, Zeferino POA#1 # [phone] ( in [place]) and inderjit/Ester POA#[address] Gorman's plan is to treat UTI, have dr. Christian sanchez for pain management, plans dc to snf . Zeferino and Ester agreed with the poc. Later, CM received call from dr. Gorman said he spoke with dr. Gonzales who indicated that he does not come to [facility] anymore. CM director Mounika made aware. Per dr. Gorman, the pt may f/u with neuro surgeon as out patient. He will reeval for dc pt to rehab with po pain med as well. >> CM s/w with Ester, who stated she will make an appointment with dr Rafal Santoro,for neurology consultation. She requested [facility] transfer to [facility] . Ester already spoke with [facility] for possible admission. LANE faxed the referral package to [facility] attention: [facility] fax# , tel # [phone] ext [phone]. -- CM to f/u
[2018-10-23] MEDS: INSULIN LISPRO SLIDING SCALE 100 UNITS/ML VIAL (humaLOG) SUBCUT PRN ×2 (12:04→17:00)
--- NOTE | 2018-10-23 15:00 | NUR ---
DC Planning: Regarding POA: LANE verified with pt's son Zeferino Jones that he is the first on the POA consent form and his sister/Ester is second on the list. He requested not to give pt's info out to anyone but the himself and Ester. Brenda CRANDALL was on the phone to verify and received the same message and instruction. -- KARLEY Lawson and US Berg made aware. >> Per Zeferino and Ester: their other sister La and ex Shadi (names are not on the POA) had filed the litigation against the patient. Zeferino stated: both can get information if permitted by the patient. Shadi and La made aware. >> CM later met with Shadi Norman and La in the [facility], all wants to hear the dcp together at the same time. CM got verbal permission from the patient an OK to give out information to Alyssa. Again , go over the dcp to [facility]end[facility] for continued PT, and antibiotic tx, Ester will get the neuro appointment for neuro consult to address the pt's chronic pain.
[2018-10-23 15:28] VITALS: BP_SYST 109
--- NOTE | 2018-10-23 16:00 | NUR ---
RN ROUNDS PATIENT IS RESTING COMFORTABLY IN BED. NO S/S OF DISTRESS OR SOB. PATIENT IS AWAKE AND ALERT. DAUGHTER IS AT BEDSIDE. CALL LIGHT IN REACH, BED IN LOWEST POSITION, AND WILL CONTINUE TO MONITOR.
--- NOTE | 2018-10-23 16:30 | NUR ---
DC Planning: [facility]: Wei Ocampo # [phone], the pt. is accepted , bed # 304 available tomorrow 10/24/18. RN to report # [phone]. Dr Gorman and dtpetr Norman made aware.
--- NOTE | 2018-10-23 16:43 | NUR ---
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
[2018-10-23] MEDS: ATORVASTATIN 10 MG TABLET PO SCH (17:00)
[2018-10-23] MEDS ORDERED: ROCPM1 IV (17:20)
[2018-10-23] MEDS ORDERED: INSU100V9 SUBCUT (17:20)
[2018-10-23] MEDS ORDERED: INSU100V SUBCUT (17:20)
--- NOTE | 2018-10-23 19:20 | NUR ---
OPENING NOTE RECEIVED CARE OF PT, PT IS RESTING IN BED, BREATHING IS UNLABORED TO ROOM AIR, IVF INFUSING AT ORDERED RATE WITH NO INFILTRATION AT IV SITE. PT DENIES ANY PAIN AT THIS TIME. PT ORIENTED TO USE OF CALL LIGHT AND ENCOURAGED TO CALL FOR ASSISTANCE. SAFETY PRECAUTIONS IN PLACE: BED LOCKED IN LOWEST POSITION, CALL LIGHT WITH PT, SIDE RAILS UP X3, CLOSE TO NURSES STATION, BED ALARM ON. WILL CONTINUE TO MONITOR.
--- NOTE | 2018-10-23 20:03 | NUR ---
ACCUCHECK BLOOD SUGAR OF 142, NO INSULIN COVERAGE PER SLIDING SCALE.
--- NOTE | 2018-10-23 22:35 | NUR ---
SLEEPING PT RESTING IN BED, VISIBLE SYMMETRICAL RISE AND FALL OF CHEST TO ROOM AIR. NO S/S OF ACUTE DISTRESS. IVF INFUSING AT ORDERED RATE, NO INFILTRATION AT IV SITE. SAFETY MAINTAINED. WILL MONITOR.
--- NOTE | 2018-10-24 00:05 | NUR ---
URINAL ASSISTED PT TO USE URINAL AT SIDE OF BED. PT ABLE TO CLEAN HIMSELF AND WAS HELPED TO LIE DOWN IN BED. PT REPOSITIONED FOR COMFORT. PT ENCOURAGED TO CALL FOR ANY ASSISTANCE. SAFETY MAINTAINED. WILL MONITOR.
[2018-10-24 00:30] VITALS: BP_SYST 130
--- NOTE | 2018-10-24 02:46 | NUR ---
RN ROUNDS: PT SLEEPING, NO S/S OF DISTRESS, VISIBLE SYMMETRICAL RISE AND FALL OF CHEST TO ROOM AIR. IVF INFUSING ORDERED. SAFETY MAINTAINED. WILL MONITOR.
--- NOTE | 2018-10-24 04:14 | NUR ---
RN ROUNDS: PT USED URINAL AND THEN STATED THAT HE WOULD LIKE TO GET OUT OF BED AND GO OUTSIDE. PT WAS REORIENTED TO TIME AND THEN DECIDED TO STAY IN BED. PT RESTING COMFORTABLY IN BED, NO S/S OF DISTRESS, IVF INFUSING ORDERED. SAFETY AND SEIZURE PRECAUTIONS IN PLACE. WILL MONITOR.
[2018-10-24] MEDS: LEVOTHYROXINE SODIUM 0.125 MG TABLET PO SCH (06:22)
[2018-10-24] MEDS: INSULIN Lispro 100 UNITS/ML VIAL (humaLOG) SUBCUT SCH ×2 (06:24→11:39)
[2018-10-24] MEDS: INSULIN LISPRO SLIDING SCALE 100 UNITS/ML VIAL (humaLOG) SUBCUT PRN ×2 (06:26→11:38)
--- NOTE | 2018-10-24 06:27 | NUR ---
ACCUCHECK BLOOD SUGAR OF 205, 4 UNITS OF HUMALOG GIVEN PER SLIDING SCALE.
[2018-10-24 06:38] LABS: BASOPHILS # (AUTO) 0.1 K/uL (0.0-0.2); EOSINOPHILS # (AUTO) 0.2 K/uL (0.0-0.4); EOSINOPHILS % (AUTO) 2.5 % (0.0-4.0); HEMATOCRIT 43.1 % (36-54); HEMOGLOBIN 14.2 g/dL (14.0-18.0); LYMPHOCYTES # (AUTO) 1.9 K/uL (1.0-5.5); LYMPHOCYTES % (AUTO) 22.5 % (20.5-51.5); MEAN CORPUSCULAR HEMOGLOBIN 29 pg (27-31); MEAN CORPUSCULAR HGB CONC 33 % (32-36); MEAN CORPUSCULAR VOLUME 88 fL (79.0-98.0); MONOCYTES # (AUTO) 0.8 K/uL (0.0-1.0); MONOCYTES % (AUTO) 9.4 % (1.7-9.3); NEUTROPHILS # (AUTO) 5.4 K/uL (1.8-7.7); NEUTROPHILS % (AUTO) 64.6 % (40.0-70.0); PLATELET COUNT (AUTO) 219 K/uL (130-430); RED CELL DISTRIBUTION WIDTH 15.9 % (9.0-15.0); WHITE BLOOD COUNT (AUTO) 8.3 K/uL (4.8-10.8)
--- NOTE | 2018-10-24 06:44 | NUR ---
CLOSING NOTE PT RESTING IN BED, NO S/S OF ACUTE DISTRESS NOTED, BREATHING IS UNLABORED TO ROOM AIR. IVF INFUSING AT ORDERED RATE. ALL NEEDS MET DURING SHIFT. SAFETY MAINTAINED. WILL ENDORSE CARE TO DAY SHIFT RN.
[2018-10-24 07:08] LABS: ANION GAP 10 (5-15); C-REACTIVE PROTEIN QUANT 1.7 mg/dL (0-0.5); CALCIUM 8.9 mg/dL (8.4-11.0); CHLORIDE 101 mmol/L (98-107); CREATININE 1.51 mg/dL (0.55-1.30); GLUCOSE 198 mg/dL (70-99); POTASSIUM 3.9 mmol/L (3.5-5.1); SODIUM SERUM 136 mmol/L (136-145); UREA NITROGEN, BLOOD 26 mg/dL (8-21)
--- NOTE | 2018-10-24 07:20 | NUR ---
Opening Note patient resting in bed, eyes closed, positioned to his side, no signs of distress, breathing unlabored and symmetrical, no other needs at this time, safety precautions in place, call light and bedside table within reach, room close to station, will continue to monitor
[2018-10-24 08:11] LABS: ERYTHROCYTE SEDIMENTATION RATE 5 MM/HR (0-15)
[2018-10-24 08:30] VITALS: BP_SYST 126
[2018-10-24] MEDS: MORPHINE 4 MG/ML INJ. SYRINGE IVP PRN (08:30)
[2018-10-24] MEDS: LOSARTAN POTASSIUM 50 MG TABLET (COZAAR) PO SCH (08:35)
[2018-10-24] MEDS: amLODIPine BESYLATE 5 MG TABLET PO SCH (08:36)
[2018-10-24] MEDS: FUROSEMIDE 40 MG TABLET PO SCH (08:37)
[2018-10-24] MEDS: levETIRAcetam 500 MG TABLET PO SCH (08:37)
[2018-10-24] MEDS: ALPRAZolam 0.25 MG TABLET PO SCH (08:37)
[2018-10-24] MEDS: cefTRIAXone 1 GM IVPB PREMIX 50 ML IV SCH (08:38)
[2018-10-24] MEDS: ASPIRIN 81 MG TABLET(ECOTRIN) PO SCH (08:38)
--- NOTE | 2018-10-24 08:53 | NUR ---
Medications eduacated patient regarding meds, verbalized understanding, stated does not want asprin at this time, educated him on potential risks of not receiving meds, verbalized understanding, tolerated meds well by mouth, pain meds given by Marcie CRANDALL, educated patient on plan of care, verbalized understanding, no other needs at this time, safety precautions remain in place, bedside table and call light within reach, will continue to monitor patient
[2018-10-24] MEDS ORDERED: INSULIN GLARGINE 100 UNITS/ML 10 ML VIAL SUBCUT SCH (09:00)
--- NOTE | 2018-10-24 10:20 | NUR ---
PT note Attempted to have patient participate with therapy; patient refusing at this time, nursing made aware.
[2018-10-24 11:17] VITALS: BP_SYST 129
--- NOTE | 2018-10-24 11:42 | NUR ---
Blood Sugar Assessed insulin coverage provided, educated patient and family regarding meds, verbalized understanding, case management at bedside speaking to daughter, patient and daughter agree to transfer, safety precautions remain in place, will continue to monitor
--- NOTE | 2018-10-24 12:09 | NUR ---
Discharge Planning: DCP set transportation with [facility] ([phone]) 2:00pm P/U, patient packet taken to nurse station.
[2018-10-24 12:53] VITALS: BP_SYST 127
[2018-10-24] MEDS ORDERED: [UNRECOGNIZED DRUG - CODE] IJ (13:39)
--- NOTE | 2018-10-24 14:25 | NUR ---
PT TRANSFERRED Report given to Amira at [facility]. Transfer packet with Transfer Orders and Medication Reconciliation form given to EMT with report. Exitcare provided. [facility] ID band removed, replaced with ID band with pt's name and . All belongings sent with patient. Patient left floor via gurney escorted by EMT in no distress.
== END 2018-10-24 14:25 | DRG 871 ==
LOC: SED 11:55 → SMU 15:59
PROVIDERS: ADMIT Preventive Medicine Preventive Medicine/Occupational Environmental Medicine; ATTEND Preventive Medicine Preventive Medicine/Occupational Environmental Medicine
DX: A41.9 Sepsis, unspecified organism (principal); N17.0 Acute kidney failure with tubular necrosis; E87.1 Hypo-osmolality and hyponatremia; N12 Tubulo-interstitial nephritis, not specified as acute or chronic; I12.9 Hypertensive chronic kidney disease with stage 1 through stage 4 chronic kidney disease, or unspecified chronic kidney disease; E03.9 Hypothyroidism, unspecified; E11.22 Type 2 diabetes mellitus with diabetic chronic kidney disease; I25.10 Atherosclerotic heart disease of native coronary artery without angina pectoris; F03.90 Unspecified dementia, unspecified severity, without behavioral disturbance, psychotic disturbance, mood disturbance, and anxiety; E78.5 Hyperlipidemia, unspecified; G40.909 Epilepsy, unspecified, not intractable, without status epilepticus; M54.32 Sciatica, left side; N18.3 Chronic kidney disease, stage 3 (moderate); M54.17 Radiculopathy, lumbosacral region; M47.896 Other spondylosis, lumbar region; K21.9 Gastro-esophageal reflux disease without esophagitis; I49.5 Sick sinus syndrome; E11.65 Type 2 diabetes mellitus with hyperglycemia; E83.42 Hypomagnesemia; B96.20 Unspecified Escherichia coli [E. coli] as the cause of diseases classified elsewhere; M48.061 Spinal stenosis, lumbar region without neurogenic claudication; G89.29 Other chronic pain; N40.0 Benign prostatic hyperplasia without lower urinary tract symptoms; E88.09 Other disorders of plasma-protein metabolism, not elsewhere classified; Z79.899 Other long term (current) drug therapy; Z79.84 Long term (current) use of oral hypoglycemic drugs; Z79.02 Long term (current) use of antithrombotics/antiplatelets; Z86.73 Personal history of transient ischemic attack (TIA), and cerebral infarction without residual deficits; Z95.0 Presence of cardiac pacemaker; Z79.82 Long term (current) use of aspirin
CPT/HCPCS: 36415; 72100-TC; 76770; 80048; 80053; 81000-TC; 82570-TC; 82962; 83036; 83605; 83735-TC; 84100-TC; 84439; 84443-TC; 85025; 85610-TC; 85651-TC; 85730-TC; 86140; 87040-TC; 87086; 87186-TC; 96361; 96374; 96376; 99285; J0696; J1815; J2270; J2405; J7030